=== PATIENT | female | born 1980 | race Two or more races ===

== ENCOUNTER 2017-03-13 12:18 | Emergency (ER) | payer MEDICAID ==
[~2017-03-13 12:18] MED LIST: COLACE100 M1 PO; MECLIZINE HCL25 M3 PO; MOBIC7.5 M2 PO; NORCO 5-325 TA1 EACH PO; ZOFRAN4 M2 PO; ZOFRAN4 M2 SL
[2017-03-13 13:42] LABS: URINE BILIRUBIN NEGATIVE (NEG); URINE BLOOD MODERATE (NEG); URINE GLUCOSE (UA) NEGATIVE (NEG); URINE KETONE NEGATIVE (NEG); URINE LEUKOCYTE ESTERASE NEGATIVE (NEG); URINE NITRITE NEGATIVE (NEG); URINE PROTEIN NEGATIVE (NEG)
[2017-03-13 13:43] LABS: URINE APPEARANCE CLEAR; URINE COLOR YELLOW
[2017-03-13 13:51] LABS: URINE MUCUS 3+; URINE RBC RARE /[HPF] (0-5); URINE WBC RARE /[HPF] (0-5)
[2017-03-13] MEDS ORDERED: MECLIZINE HCL25 M3 PO (15:26)
[2017-03-13] MEDS ORDERED: IBUPROFEN800 M1 PO (15:26)
[2017-08-26] MEDS ORDERED: NO HOME MEDICATION XX (22:53)
[2017-08-27] MEDS ORDERED: NORCO 5-325 TA1 EACH PO (00:26)
== END 2017-03-13 15:28 ==
LOC: EDMED 12:18
PROVIDERS: Emergency Medicine
DX: N94.6 Dysmenorrhea, unspecified (principal); R42 Dizziness and giddiness; Z90.710 Acquired absence of both cervix and uterus; Z90.89 Acquired absence of other organs; Z98.890 Other specified postprocedural states
CPT/HCPCS: P9612